=== PATIENT | female | born 1990 | race African-American/Black ===

== ENCOUNTER 2019-08-06 19:25 | Emergency (ER) | payer SELFPAY ==
[~2019-08-06] VITALS: Ht 170.2 cm; Wt 120.7 kg
--- OUTSIDE RECORDS SUMMARY | 2019-08-06 19:28 | XMS REPORT ---
[facility] Address Unknown Phone Unavailable Care Team Providers Care Life Skills Coordinator Volunteer Name Role Phone Unavailable Unavailable Problems This patient has no known problems. Allergies, Adverse Reactions, Alerts This patient has no known allergies or adverse reactions. Medications This patient has no known medications. Encounters Start Date/Time End Date/Time Encounter Type Admission Type Attending [facility] Care Department Encounter ID 2019-08-14 00:00:00 2019-08-14 00:00:00 Outpatient [facility] [id number] 2019-05-27 09:32:08 2019-05-27 09:32:08 Outpatient [facility] [id number] 2019-03-10 11:21:32 2019-03-10 11:21:32 Outpatient [facility] [id number] 2019-01-15 14:32:02 2019-01-15 14:32:02 Outpatient [facility] [id number] 2018-12-31 00:00:00 2018-12-31 00:00:00 Outpatient [facility] [id number] 2018-12-23 10:06:35 2018-12-23 10:06:35 Outpatient [facility] [id number] 2018-11-26 13:39:58 2018-11-26 13:39:58 Outpatient [facility] [id number] 2018-11-20 00:00:00 2018-11-20 00:00:00 Outpatient [facility] [id number] 2018-11-12 11:38:17 2018-11-12 11:38:17 Outpatient [facility] [id number] 2018-10-31 11:39:55 2018-10-31 11:39:55 Outpatient [facility] [id number] 2018-10-29 00:00:00 2018-10-29 00:00:00 Outpatient [facility] [id number] 2018-10-20 12:38:43 2018-10-20 12:38:43 Outpatient [facility] [id number] 2018-10-20 11:28:10 2018-10-20 11:28:10 Outpatient [facility] [id number] 2018-10-07 09:39:43 2018-10-07 09:39:43 Outpatient [facility] [id number] 2018-07-15 10:18:11 2018-07-15 10:18:11 Outpatient [facility] [id number] 2018-07-03 00:00:00 2018-07-03 00:00:00 Outpatient [facility] [id number] 2018-06-25 00:00:00 2018-06-25 00:00:00 Outpatient [facility] [id number] 2018-05-23 00:00:00 2018-05-23 00:00:00 Outpatient [facility] [id number] 2018-05-22 12:18:51 2018-05-22 12:18:51 Outpatient [facility] [id number] 2018-05-22 10:45:31 2018-05-22 10:45:31 Outpatient [facility] [id number] 2018-04-28 10:47:04 2018-04-28 10:47:04 Outpatient [facility] [id number] 2018-04-28 00:00:00 2018-04-28 00:00:00 Outpatient [facility] [id number] 2018-04-25 00:00:00 2018-04-25 00:00:00 Outpatient [facility] [id number] 2018-01-28 14:00:51 2018-01-28 14:00:51 Outpatient [facility] [id number] 2018-01-28 13:02:12 2018-01-28 13:02:12 Outpatient [facility] [id number] 2018-01-14 00:00:00 2018-01-14 00:00:00 Outpatient [facility] [id number] 2017-12-30 12:50:57 2017-12-30 12:50:57 Outpatient [facility] [id number] 2017-12-30 11:41:59 2017-12-30 11:41:59 Outpatient [facility] [id number] 2017-12-30 00:00:00 2017-12-30 00:00:00 Outpatient [facility] [id number] 2017-12-26 00:00:00 2017-12-26 00:00:00 Outpatient [facility] [id number] 2017-10-25 00:00:00 2017-10-25 00:00:00 Outpatient [facility] [id number] 2017-10-02 00:00:00 2017-10-02 00:00:00 Outpatient [facility] [id number] 2017-08-05 08:16:26 2017-08-05 08:16:26 Emergency [facility] [id number] 2017-08-05 07:18:06 2017-08-05 07:18:06 Emergency [facility] [id number] 2017-05-31 00:00:00 2017-05-31 00:00:00 Outpatient [facility] [id number] 2017-05-22 00:00:00 2017-05-22 00:00:00 Outpatient [facility] [id number] 2017-04-18 08:10:06 2017-04-18 08:10:06 Outpatient [facility] [id number] 2017-04-17 10:02:58 2017-04-17 10:02:58 Outpatient [facility] [id number] 2017-04-17 00:00:00 2017-04-17 00:00:00 Outpatient [facility] [id number] 2017-04-17 00:00:00 2017-04-17 00:00:00 Outpatient [facility] [id number] 2017-04-15 14:11:25 2017-04-15 14:11:25 Outpatient [facility] [id number] 2017-04-10 08:55:06 2017-04-10 08:55:06 Outpatient [facility] [id number] 2017-04-06 13:32:49 2017-04-06 13:32:49 Emergency [facility] [id number] 2017-03-20 00:00:00 2017-03-20 00:00:00 Outpatient [facility] [id number] 2017-03-12 00:00:00 2017-03-12 00:00:00 Outpatient [facility] [id number] 2017-02-28 00:00:00 2017-02-28 00:00:00 Outpatient [facility] [id number] 2017-02-18 00:00:00 2017-02-18 00:00:00 Outpatient [facility] [id number] 2017-02-14 12:19:21 2017-02-14 12:19:21 Outpatient [facility] [id number] 2017-01-31 13:00:23 2017-01-31 13:00:23 Outpatient [facility] [id number] 2017-01-31 00:00:00 2017-01-31 00:00:00 Outpatient [facility] [id number]
--- OUTSIDE RECORDS SUMMARY | 2019-08-06 19:28 | XMS REPORT ---
Author Author Leisa Jennings [facility] eClinical[employer] Address Unknown Phone Unavailable Care Team Providers Care Signaler Name Role Phone Leisa Jennings CP Unavailable Allergies, Adverse Reactions, Alerts Substance Reaction Event Type N.K.D.A. Info Not Available Non Drug Allergy Problems Problem Type Condition Code Onset Dates Condition Status Problem Family planning education, guidance, and counseling Z30.09 Active Problem Body mass index (BMI) of 40.0-44.9 in adult Z68.41 Active Problem Encounter for surveillance of Nexplanon subdermal contraceptive Z30.46 Active Problem Elevated blood pressure I10 Active Assessment Body mass index (BMI) 40.0-44.9, adult Z68.41 Active Problem Leukocytosis, unspecified type D72.829 Active Assessment Elevated blood pressure I10 Active Assessment Left shoulder pain M25.512 Active Problem Body mass index (BMI) 40.0-44.9, adult Z68.41 Active Problem Essential (primary) hypertension I10 Active Problem Morbid (severe) obesity due to excess calories E66.01 Active Problem Hyperlipidemia, unspecified hyperlipidemia type E78.5 Active Problem Abnormal result of other cardiovascular function study R94.39 Active Problem Menorrhagia with irregular cycle N92.1 Active Problem Obesity, morbid, BMI 40.0-49.9 E66.01 Active Assessment Cellulitis L03.90 Active Problem Mild depression F32.0 Active Problem Acute vaginitis N76.0 Active Problem Other specified bacterial agents as the cause of diseases classified elsewhere B96.89 Active Problem Localized edema R60.0 Active Problem Chlamydia A74.9 Active Assessment Contraception Z30.9 Active Problem Wound of left lower extremity, subsequent encounter S81.802D Active Problem Encounter for test, result unknown Z32.00 Active Medications Medication Code System Code Instructions Start Date End Date Status Dosage Lisinopril-Hydrochlorothiazide [facility] [address]-01 10-12.5 MG Orally Once a day Sep 04, 2017 Active 1 tablet Doxycycline Monohydrate [facility] [address]-46 100 MG Orally twice a day Jul 23, 2017 Active 1 capsule Cipro [facility] [address]-21 500 MG Orally every 12 hrs Jul 30, 2017 Active 1 tablet Clindamycin HCl [facility] [address]-46 300 MG Orally twice a day November 05, 2017 Active 1 capsule Aspirin [facility] 62765-12611 81 MG Orally Once a day November 05, 2017 Active 1 tablet Metronidazole [facility] [address]-42 500 MG Orally twice a day Jul 23, 2017 Active 1 tablet Dicloxacillin Sodium [facility] [address]-13 250 MG Orally every 6 hrs Jul 30, 2017 Active 1 capsule 1 to 2 hours before meals Lipitor [facility] [address]-26 10 MG Orally Once a day Sep 11, 2017 Active 1 tablet Cyclobenzaprine HCl [facility] [address]-31 7.5 MG Orally once a day at bedtime November 05, 2017 Active 1 tablet Results No Known Results Summary Purpose eClinicalWorks Submission
--- OUTSIDE RECORDS SUMMARY | 2019-08-06 19:28 | XMS REPORT ---
Author Author Lucita Castañeda Organization e[employer] Address Unknown Phone Unavailable Care Team Providers Care Scientist Propagator Name Role Phone Lucita Castañeda CP Unavailable Allergies No Known Allergies Problems Problem Type Condition Code Onset Dates Condition Status Problem Family planning education, guidance, and counseling Z30.09 Active Problem Body mass index (BMI) of 40.0-44.9 in adult Z68.41 Active Problem Encounter for surveillance of Nexplanon subdermal contraceptive Z30.46 Active Problem Elevated blood pressure I10 Active Problem Leukocytosis, unspecified type D72.829 Active Problem Body mass index (BMI) 40.0-44.9, adult Z68.41 Active Problem Essential (primary) hypertension I10 Active Problem Morbid (severe) obesity due to excess calories E66.01 Active Problem Hyperlipidemia, unspecified hyperlipidemia type E78.5 Active Problem Abnormal result of other cardiovascular function study R94.39 Active Problem Menorrhagia with irregular cycle N92.1 Active Problem Obesity, morbid, BMI 40.0-49.9 E66.01 Active Problem Mild depression F32.0 Active Problem Acute vaginitis N76.0 Active Problem Other specified bacterial agents as the cause of diseases classified elsewhere B96.89 Active Problem Localized edema R60.0 Active Problem Chlamydia A74.9 Active Problem Wound of left lower extremity, subsequent encounter S81.802D Active Problem Encounter for test, result unknown Z32.00 Active Medications No Known Medications Results No Known Results Summary Purpose eClinicalWorks Submission
[2019-08-06] MEDS ORDERED: KEFLEX500 MG PO (19:58)
[2019-08-06] MEDS ORDERED: POTASSIUM CHLORIDE 20 MEQ TAB CR PO ONE (20:32)
== END 2019-08-06 20:48 | disposition home or self-care (01) ==
LOC: FSED 19:25
DX: R21 Rash and other nonspecific skin eruption (principal); I87.2 Venous insufficiency (chronic) (peripheral); E87.6 Hypokalemia; K52.9 Noninfective gastroenteritis and colitis, unspecified; F17.210 Nicotine dependence, cigarettes, uncomplicated
CPT/HCPCS: 99283